=== PATIENT | female | born 1990 | race Caucasian/White ===

== ENCOUNTER 2019-02-18 02:04 | Inpatient (IN) ==
[2019-02-18] MEDS ORDERED: TYLENOL PO PRN (02:14)
[2019-02-18] MEDS ORDERED: PEPCID PO PRN (02:14)
[2019-02-18] MEDS ORDERED: PEPCID IV PRN (02:14)
[2019-02-18] MEDS ORDERED: KEFZOL 1 GM/D5W 1 GM/50 ML IVPB IV PRN (02:14)
[2019-02-18] MEDS ORDERED: REGLAN PO ONE (02:14)
[2019-02-18] MEDS ORDERED: STADOL IV PRN (02:14)
[2019-02-18] MEDS ORDERED: PEPCID PO ONE (02:14)
[2019-02-18] MEDS ORDERED: ZOFRAN IV PRN (02:14)
[2019-02-18] MEDS ORDERED: PITOCIN 30 UNITS/NS 30 UNIT/500 ML IV.SOLN IV SCH ×2 (02:15→08:00)
[2019-02-18] MEDS ORDERED: SODIUM CHLORIDE 0.9% INJ SCH (02:15)
[2019-02-18] MEDS: LR 1,000 ML IV SCH ×2 (02:45→04:19)
[2019-02-18] MEDS ORDERED: AMPICILLIN 2 GM/NS 2 GM/100 ML IVPB IV ONE (02:54)
[2019-02-18] MEDS ORDERED: NAROPIN 0.2% INJ ONE (03:07)
[2019-02-18] MEDS ORDERED: FENTANYL-BUPIV-NS 2 MCG-0.1% 200 ML EPIDURAL SCH (03:15)
[2019-02-18 03:19] LABS: URINE SOURCE VOIDED
[2019-02-18 03:22] LABS: BASO# 0.03 X1000 (0.0-0.2); BASO% 0.2 % (0.0-0.8); EOS% 0.8 % (0.0-10.0); HEMATOCRIT 36.1 % (37.0-47.0); HEMOGLOBIN 13.1 g/dL (12.0-16.0); IMM GRAN# 0.03 X1000 (0.0-0.04); IMM GRAN% 0.2 % (0.0-0.5); LYMPH# 3.64 X1000 (1.2-3.4); LYMPH% 30.2 % (20.5-51.1); MCH 31.3 PG (27-31); MCHC 36.3 g/dL (33-37); MCV 86.4 FL (81-99); MONO# 0.98 X1000 (0.11-0.59); MONO% 8.1 % (1.7-9.3); MPV 12.7 FL (7.4-10.4); NEUT# 7.27 X1000 (1.4-6.5); NEUT% 60.5 % (42.2-75.2); PLT 193 X1000 (130-400); RBC 4.18 XMIL (4.2-5.4); RDW 12.2 % (11.5-14.5); WBC 12.05 X1000 (4.8-10.8)
[2019-02-18 03:44] LABS: BILIRUBIN URINE NEGATIVE (NEGATIVE); BLOOD URINE TRACE (NEGATIVE); CLARITY CLEAR (CLEAR); COLOR YELLOW; GLUCOSE URINE NEGATIVE (NEGATIVE); KETONE URINE TRACE mg/dL (NEGATIVE); LEUKOCYTES URINE TRACE (NEGATIVE); NITRITE URINE NEGATIVE (NEGATIVE); PROTEIN URINE TRACE mg/dL (NEGATIVE); SP GRAVITY URINE 1.015; UROBILINOGEN URINE NORMAL
[2019-02-18 03:56] LABS: UR AMPHETAMINES QUAL NONE DETECTED (NONE DETECT); UR BARBITUATES QUAL NONE DETECTED (NONE DETECT); UR BENZODIAZEPIN QUAL NONE DETECTED (NONE DETECT); UR CANNABINOIDS QUAL NONE DETECTED (NONE DETECT); UR COCAINE QUAL NONE DETECTED (NONE DETECT); UR METHADONE QUAL NONE DETECTED (NONE DETECT); UR METHAMPHETAMINE QUAL NONE DETECTED (NONE DETECT); UR OPIATES QUAL NONE DETECTED (NONE DETECT); UR OXYCODONE QUAL NONE DETECTED (NONE DETECT); UR PCP QUAL NONE DETECTED (NONE DETECT); UR PROPOXYPHENE QUAL NONE DETECTED (NONE DETECT); UR TCA QUAL NONE DETECTED (NONE DETECT)
[2019-02-18] MEDS ORDERED: MINERAL OIL PO ONE (04:30)
[2019-02-18] MEDS ORDERED: XYLOCAINE-MPF 1% INJ ONE (04:31)
[2019-02-18] MEDS ORDERED: ZITHROMAX PO ONE (05:46)
[2019-02-18] MEDS ORDERED: AMPICILLIN 1 GM/NS 1 GM/50 ML IVPB IV SCH (06:54)
[2019-02-18] MEDS ORDERED: BENADRYL IV PRN (07:57)
[2019-02-18] MEDS ORDERED: M-M-R II VACCINE SUBQ ONE (07:57)
[2019-02-18] MEDS ORDERED: PERI MEDS (DERMOPLAST/NUPERCAINAL/TUCKS) MISC PRN (07:57)
[2019-02-18] MEDS ORDERED: ATARAX PO PRN (07:57)
[2019-02-18] MEDS ORDERED: CYTOTEC PO PRN (07:57)
[2019-02-18] MEDS ORDERED: PITOCIN IM PRN (07:57)
[2019-02-18] MEDS ORDERED: BOOSTRIX VACCINE IM ONE (07:57)
[2019-02-18] MEDS ORDERED: XYLOCAINE-MPF 1% INJ PRN (07:57)
[2019-02-18] MEDS ORDERED: BENADRYL PO PRN (07:57)
[2019-02-18] MEDS ORDERED: PITOCIN 20 UNITS/NS 20 UNITS/1,000 ML IV.SOLN ONE (08:55)
--- NOTE | 2019-02-18 09:00 | HISTORY AND PHYSICAL ---
CHIEF COMPLAINT: Labor. HISTORY OF PRESENT ILLNESS: Therese is a 28-year-old 3, para 1, AB 1, at 39 weeks and two days with care with Dr. Salazar with a late presentation at 36 weeks. She presented with a spontaneous onset of labor. The patient reports contractions. She denies vaginal bleeding or loss of fluid. Active baby. No PIH symptoms. PAST MEDICAL HISTORY: Denies. PAST SURGICAL HISTORY: Denies. FAMILY HISTORY: Noncontributory. ALLERGIES: No known drug allergies. PHYSICAL EXAMINATION: VITAL SIGNS: Temp 97.8 degrees, heart rate 72, respirations 18, blood pressure 124/80, O2 saturation 100% on room air. GENERAL: Alert, oriented, and in no acute distress. PULMONARY: Clear to auscultation bilaterally. CV: Regular rate and rhythm. ABDOMEN: Soft, nondistended, and gravid. PELVIC: Cervix 9, complete, bulging bag, vertex. Bag of water intact. heart tones are reassuring. [place] q.2. LABS: See for labs. ASSESSMENT: Mrs. Tuttle is a 28-year-old, 3, para 1, 1, at 39 weeks and two days, who presented with spontaneous onset of labor. The patient had chlamydia at last visit that was not treated and she was given 1 g of [*] for treatment. PLAN: Anticipate spontaneous vaginal delivery. She desires future fertility. cc: Guillermo Dean MD
--- NOTE | 2019-02-18 09:27 | OPERATIVE NOTE ---
PROCEDURE DATE: 02/18/2019 PREOPERATIVE DIAGNOSES: 1. Intrauterine at 39 weeks and 2 days. 2. Spontaneous labor. POSTOPERATIVE DIAGNOSES: 1. Intrauterine at 39 weeks and 2 days. 2. Spontaneous labor. 3. Non-reassuring heart rate. PROCEDURE: Vacuum-assisted vaginal delivery. SURGEON: Magdy Fernandes DO CORPORATE ACCOUNT EXECUTIVE: None. ANESTHESIA: Epidural. FINDINGS: Male infant in cephalic presentation. COMPLICATIONS: Low heart rate for several minutes, treated with vacuum delivery. ESTIMATED BLOOD LOSS: 300. PROCEDURE IN DETAIL: Patient was in spontaneous labor and progressed to complete. She was brought the edge to the table and prepped in the usual fashion. She pushed well for approximately 10 minutes, and baby had decreased heart rate into the 50s for several minutes. In between contractions, it was unclear if the heart rate was recovering and it was decided that a vacuum would be applied. We discussed with the patient vacuum procedure, the risks and benefits, and the need to push well to hasten her delivery. The vacuum was applied at the midline between the anterior and posterior fontanelles, pressure was applied to the cup, and the cup was checked digitally and visually inspected and found to be free of maternal tissue. The patient pushed with good effort. The vacuum was on for approximately 10 seconds. The head started at +2 station. One pull was all that was required for delivery of the head. The vacuum was removed. The anterior shoulder was then delivered, followed by the posterior shoulder. Baby was immediately vigorous and crying. The cord was stripped and then clamped and cut on the maternal abdomen. The baby was handed off to the waiting nursing team. The placenta was then delivered by G[place] presentation. There were no lacerations of the vagina. The patient and baby are both doing well in the LDRP. cc: DO Guillermo Kirk MD [facility]
--- NOTE | 2019-02-18 09:34 | OPERATIVE NOTE ---
PROCEDURE DATE: 02/18/2019 ADDENDUM: FINDINGS: weight was 6 pounds 0 ounces. Apgars were 8 and 10. cc: DO Guillermo Kirk MD
[2019-02-18] MEDS: MOTRIN PO PRN ×2 (11:41→21:02)
[2019-02-18] MEDS: NORCO-5 PO PRN ×2 (11:41→17:17)
[2019-02-18] MEDS: NICODERM PATCH TD SCH (17:23)
[2019-02-18] MEDS ORDERED: LOTRIMIN 1% CREAM TOP SCH (21:00)
[2019-02-18] MEDS: PERICOLACE PO SCH (21:02)
[2019-02-18] MEDS: PATIENT'S OWN MED (CONTROLLED) SL SCH (21:03)
[2019-02-18] MEDS: MYCELEX 1% CREAM TOP SCH ×2 (21:26→23:49)
[2019-02-19] MEDS: AMBIEN PO PRN (00:05)
[2019-02-19] MEDS: NORCO-5 PO PRN (05:51)
[2019-02-19] MEDS ORDERED: PERCOCET-5 PO PRN (07:15)
[2019-02-19 07:16] LABS: BASO# 0.04 X1000 (0.0-0.2); BASO% 0.3 % (0.0-0.8); EOS# 0.08 X1000 (0.0-0.7); EOS% 0.7 % (0.0-10.0); HEMATOCRIT 34.1 % (37.0-47.0); HEMOGLOBIN 11.7 g/dL (12.0-16.0); IMM GRAN# 0.03 X1000 (0.0-0.04); IMM GRAN% 0.2 % (0.0-0.5); LYMPH# 4.01 X1000 (1.2-3.4); LYMPH% 33.1 % (20.5-51.1); MCH 30.5 PG (27-31); MCHC 34.3 g/dL (33-37); MONO# 0.83 X1000 (0.11-0.59); MONO% 6.9 % (1.7-9.3); MPV 12.5 FL (7.4-10.4); NEUT# 7.12 X1000 (1.4-6.5); NEUT% 58.8 % (42.2-75.2); PLT 194 X1000 (130-400); RBC 3.83 XMIL (4.2-5.4); RDW 12.7 % (11.5-14.5); WBC 12.11 X1000 (4.8-10.8)
[2019-02-19] MEDS: MOTRIN PO PRN ×2 (07:25→15:49)
[2019-02-19] MEDS: PATIENT'S OWN MED (CONTROLLED) SL SCH ×2 (08:47→20:22)
[2019-02-19] MEDS: PRECARE PO SCH (08:47)
[2019-02-19] MEDS: PERCOCET-10 PO PRN ×3 (10:05→20:21)
[2019-02-19] MEDS: NICODERM PATCH TD SCH (16:34)
[2019-02-19] MEDS ORDERED: ATIVAN PO PRN (20:07)
[2019-02-19] MEDS: PERICOLACE PO SCH (20:21)
[2019-02-19] MEDS: MYCELEX 1% CREAM TOP SCH (20:25)
[2019-02-20] MEDS: AMBIEN PO PRN (00:21)
[2019-02-20] MEDS: MOTRIN PO PRN ×2 (00:21→08:10)
[2019-02-20] MEDS: PERCOCET-10 PO PRN ×2 (00:21→05:37)
[2019-02-20 07:02] VITALS: BP 144/80
--- NOTE | 2019-02-20 07:25 | OB/GYN PROGRESS NOTE ---
Progress Note OB - . Patient Problems: Current Active Problems Problem Status Onset Intrauterine Acute Vacuum-assisted delivery, delivered, current hospitalization Acute OB Progress Note: Vital Signs - 24 hr 02/19/19 07:27 02/19/19 15:42 02/19/19 20:12 Temperature 97.0 F L 96.6 F L 96.6 F L Pulse Rate 91 H 115 H 106 H Respiratory Rate 18 20 22 Blood Pressure 137/87 139/93 159/89 O2 Sat by Pulse Oximetry 97 97 99 02/20/19 00:23 02/20/19 07:01 Temperature 96.4 F L 97 F L Pulse Rate 97 H 77 Respiratory Rate 20 20 Blood Pressure 130/82 144/80 O2 Sat by Pulse Oximetry 98 97 HPI: Pt seen and examined. Currently c/o lower abdominal pain. Pain well controlled with PO pain meds. Ambulating and urinating w/o difficulty. Tolerating regular diet. Denies N/V/Fever/Chills. VS: please see above GEN: NAD CV: +S1S2 RESP: CTA b/l ABD: soft, NTTP, FF below umbilicus EXT: neg CT Laboratory Last Values WBC 12.11 X1000 (4.8-10.8) H 02/19/19 07:04 RBC 3.83 XMIL (4.2-5.4) L 02/19/19 07:04 Hgb 11.7 g/dL (12.0-16.0) L 02/19/19 07:04 Hct 34.1 % (37.0-47.0) L 02/19/19 07:04 MCV 89.0 FL (81-99) 02/19/19 07:04 MCH 30.5 PG (27-31) 02/19/19 07:04 MCHC 34.3 g/dL (33-37) 02/19/19 07:04 RDW Std Deviation 12.7 % (11.5-14.5) 02/19/19 07:04 Plt Count 194 X1000 (130-400) 02/19/19 07:04 MPV 12.5 FL (7.4-10.4) H 02/19/19 07:04 Immature Gran % (Auto) 0.2 % (0.0-0.5) 02/19/19 07:04 Neut % (Auto) 58.8 % (42.2-75.2) 02/19/19 07:04 Lymph % (Auto) 33.1 % (20.5-51.1) 02/19/19 07:04 [place] % (Auto) 6.9 % (1.7-9.3) 02/19/19 07:04 Eos % (Auto) 0.7 % (0.0-10.0) 02/19/19 07:04 Baso % (Auto) 0.3 % (0.0-0.8) 02/19/19 07:04 Immature Gran # (Auto) 0.03 X1000 (0.0-0.04) 02/19/19 07:04 Neut # (Auto) 7.12 X1000 (1.4-6.5) H 02/19/19 07:04 Lymph # (Auto) 4.01 X1000 (1.2-3.4) H 02/19/19 07:04 [place] # (Auto) 0.83 X1000 (0.11-0.59) H 02/19/19 07:04 Eos # (Auto) 0.08 X1000 (0.0-0.7) 02/19/19 07:04 Baso # (Auto) 0.04 X1000 (0.0-0.2) 02/19/19 07:04 Urine Source VOIDED 02/18/19 02:10 Urine Color YELLOW 02/18/19 02:10 Urine Clarity CLEAR (CLEAR) 02/18/19 02:10 Urine pH 7.0 02/18/19 02:10 Ur Specific [place] 1.015 02/18/19 02:10 Urine Protein TRACE mg/dL (NEGATIVE) A 02/18/19 02:10 Urine Ketones TRACE mg/dL (NEGATIVE) 02/18/19 02:10 Urine Blood TRACE (NEGATIVE) 02/18/19 02:10 Urine Nitrite NEGATIVE (NEGATIVE) 02/18/19 02:10 Urine Bilirubin NEGATIVE (NEGATIVE) 02/18/19 02:10 Urine Urobilinogen NORMAL mg/dL 02/18/19 02:10 Urine WBC TRACE (NEGATIVE) A 02/18/19 02:10 Urine Glucose NEGATIVE mg/dL (NEGATIVE) 02/18/19 02:10 Urine Opiates Screen NONE DETECTED (NONE DETECT) 02/18/19 02:10 Ur Oxycodone Screen NONE DETECTED (NONE DETECT) 02/18/19 02:10 Urine Methadone Screen NONE DETECTED (NONE DETECT) 02/18/19 02:10 U Propoxyphene Qual NONE DETECTED (NONE DETECT) 02/18/19 02:10 Ur Barbituates Screen NONE DETECTED (NONE DETECT) 02/18/19 02:10 Ur Tricyclics Screen NONE DETECTED (NONE DETECT) 02/18/19 02:10 Ur Phencyclidine Scrn NONE DETECTED (NONE DETECT) 02/18/19 02:10 Ur Amphetamines Screen NONE DETECTED (NONE DETECT) 02/18/19 02:10 U Methamphetamines Scrn NONE DETECTED (NONE DETECT) 02/18/19 02:10 U Benzodiazepines Scrn NONE DETECTED (NONE DETECT) 02/18/19 02:10 Urine Cocaine Screen NONE DETECTED (NONE DETECT) 02/18/19 02:10 U Cannabinoids Screen NONE DETECTED (NONE DETECT) 02/18/19 02:10 RPR NON-REACTIVE (NONREACTIVE) 02/18/19 02:30 ASSESSMENT: 28yo PPD#2 s/p vacuum assisted vaginal delivery PLAN: -con't routine PP care -plan for d/c home today
[2019-02-20] MEDS: PRECARE PO SCH (08:07)
[2019-02-20] MEDS: PATIENT'S OWN MED (CONTROLLED) SL SCH (08:08)
[2019-02-20] MEDS: MYCELEX 1% CREAM TOP SCH (09:53)
[2019-02-20] MEDS: NICODERM PATCH TD SCH (09:53)
--- NOTE | 2019-02-20 22:25 | DISCHARGE SUMMARY ---
ADMISSION DATE: 02/18/2019 DISCHARGE DATE: 02/20/2019 ADMISSION DIAGNOSIS: Intrauterine at 39 weeks and 2 days, in active labor. FINAL DIAGNOSIS: Intrauterine at 39 weeks 2 days in active labor, with vacuum-assisted vaginal delivery of a male infant, weighing 6 pounds 0 ounces with scores of 8 and 10 at one and five minutes, respectively. PROCEDURE: Vacuum-assisted vaginal delivery. BRIEF HISTORY: The patient is a 28-year-old female, G3, P1, who presented at 39 weeks and days to labor and delivery with complaint of lower abdominal pain, associated with contractions. She denied any vaginal bleeding or leakage of fluid at the time, and reported that the fetus was active. MEDICATIONS: vitamins and Subutex. PAST MEDICAL HISTORY: Polysubstance abuse. PAST SURGICAL HISTORY: Denies. FAMILY HISTORY: Noncontributory. ALLERGIES: No known drug allergies. PHYSICAL EXAMINATION: Vital signs: Temperature 97 degrees, pulse rate 77, respiration rate 20, blood pressure 144/80, O2 saturation 97% on room air. General: No acute distress. Cardiovascular: Regular rate and rhythm. Positive S1, S2. Respiration clear to auscultation. Abdomen soft, nontender to palpation. Fundus firm below umbilicus. Extremities: Negative calf tenderness. HOSPITAL COURSE: The patient presented in early active labor and had a vacuum-assisted vaginal delivery. A male infant was born weighing 6 pounds 0 ounces with scores of 8 and 10 at one and five minutes, respectively. No perineal tears were identified and no episiotomy was performed. The patient's course was unremarkable. She had good vital signs and was afebrile. Her hemoglobin and hematocrit were 11.7 and 34.1. The patient had stable vital signs and was afebrile. On day 2 it was felt the patient could be discharged home. DISCHARGE INSTRUCTIONS: Patient to be discharged home. Follow up in 1 week for check and blood pressure check. Patient advised on pelvic rest for 6 weeks with lifting precautions. DISCHARGE MEDICATIONS: Continue Subutex 8 mg tablet b.i.d.; ibuprofen 800 mg p.o. q.8 hours; acetaminophen 325 mg p.o. q.4-6 hours p.r.n. cc: Guillermo Dean MD
== END 2019-02-20 16:20 | disposition home or self-care (01) | DRG 807 ==
LOC: P.NBC 02:04 → P.LD 02:07
PROVIDERS: ADMIT Obstetrics & Gynecology; ATTEND Obstetrics & Gynecology
CPT/HCPCS: 80104; 80301; 80305; 81003; 85025; 86592; 87491; 87591; A9270; G0431; G0434; G0477; J0290; J0595; J2405; J2590; J2795; J7120